=== PATIENT | male | born 1995 | race Caucasian/White ===

== ENCOUNTER 2022-06-25 15:03 | Emergency (ER) | payer OTHER ==
[2022-06-25 15:10] VITALS: BP 121/78; PULSE 72; RESP 18; TEMP 98.4; BMI 23.1
[2022-06-25] MEDS ORDERED: SODIUM CHLORIDE 1,000 ML IV STA (15:29)
[2022-06-25] MEDS ORDERED: ACETAMINOPHEN 1000 MG/100 ML BAG IVPB ONE (15:29)
[2022-06-25] MEDS ORDERED: ONDANSETRON 4 MG/2 ML VIAL IVPUSH ONE (15:30)
[2022-06-25] MEDS ORDERED: ACETAMINOPHEN INJECTION 100 ML IVPB ONE (15:38)
[2022-06-25] MEDS ORDERED: ONDANSETRON 4 MG/2 ML VIAL ONE (15:39)
[2022-06-25 16:35] LABS: EPI CELLS 1 /uL (0-25.1); HYALINE CASTS 0 /uL (0-3.1); PH,URINE 5.5 (5.0-8.0); URINE APPEARANCE CLEAR; URINE BACTERIA 4 /uL (0-1359); URINE BILIRUBIN NEGATIVE (NEGATIVE); URINE COLOR YELLOW; URINE GLUCOSE (UA) NEGATIVE (NEGATIVE); URINE KETONE NEGATIVE (NEGATIVE); URINE LEUK ESTERASE NEGATIVE (NEGATIVE); URINE NITRITE NEGATIVE (NEGATIVE); URINE PROTEIN NEGATIVE (NEGATIVE); URINE RBC 3 /uL (0-23.9); URINE UROBILINOGEN 0.2 mg/dL (0.2-1.0); URINE WBC 3 /uL (0-25.8)
[2022-06-25 16:41] LABS: EOS % 6.1 % (0-4.5); HEMATOCRIT 41.8 % (35.4-49); HEMOGLOBIN 13.9 GM/dL (11.7-16.9); LYMPH % 32.1 % (8-40); MCH 30.8 pg (25.7-33.7); MCHC 33.3 g/dl (32.0-35.9); MEAN CELL VOLUME 92.7 fl (80-96); MEAN PLT VOLUME 8.7 fl (7.5-11.1); MONO % 10.1 % (3.8-10.2); NEUT % 50.7 % (42.8-82.8); PLATELET COUNT 249 10^3/uL (134-434); RBC 4.51 M/mm3 (4.00-5.60); RDW 13.2 % (11.9-15.9); WHITE BLOOD COUNT 7.7 K/mm3 (4.0-10.0)
[2022-06-25 17:08] LABS: ALBUMIN 4.1 g/dl (3.4-5.0); BLOOD UREA NITROGEN 18.7 mg/dL (7-18)
[2022-06-25 17:11] LABS: CREATININE 0.8 mg/dL (0.55-1.3)
[2022-06-25 17:12] LABS: BILIRUBIN,TOTAL 0.3 mg/dL (0.2-1)
[2022-06-25 17:13] LABS: TOT PROT 7.2 g/dl (6.4-8.2)
[2022-06-25 19:01] LABS: INR 1.09 (0.83-1.09); PROTHROMBIN TIME (PATIENT) 12.5 SEC (9.7-13.0)
[2022-06-25 19:04] LABS: ACTIVATED PTT 38.7 SECONDS (25.2-36.5)
== END 2022-06-25 19:38 | disposition home or self-care (01) ==
LOC: JER 15:03
PROC: 3E0333Z Introduction of Anti-inflammatory into Peripheral Vein, Percutaneous Approach (ICD-10-PCS; principal; 2022-06-25)
PROC: 3E033GC Introduction of Other Therapeutic Substance into Peripheral Vein, Percutaneous Approach (ICD-10-PCS; 2022-06-25)
PROC: 3E0337Z Introduction of Electrolytic and Water Balance Substance into Peripheral Vein, Percutaneous Approach (ICD-10-PCS; 2022-06-25)
DX: R10.12 Left upper quadrant pain (principal)
CPT/HCPCS: 36415; 74177-TC; 80053; 81003; 83690; 85025; 85610; 85730; 99285-25; Q9967